=== PATIENT | female | born 1970 | race Caucasian/White ===

== ENCOUNTER 2016-09-10 16:24 | Emergency (ER) | payer OTHER ==
[2016-09-10 16:25] VITALS: BMI 31.3
[2016-09-10 16:38] VITALS: TEMP 98
[2016-09-10] MEDS ORDERED: Oxycodone/Acetaminophen 5/325 mg Tab PO STA (17:42)
[2016-09-10] MEDS ORDERED: Oxycodone/Acetaminophen 5/325 mg Tab ONE (17:48)
--- NOTE | 2016-09-10 17:59 | C.PDOC ---
History Of Present Illness A 46 year old female presents to the emergency room with complaints of left ankle pain after twisting the ankle while wearing heels 2 days ago. Patient reports that at the time she took off the heels, she was able to ambulate. The following day swelling worsened though improved some today. Pain persists. Patient denies any other trauma/pain, numbness, weakness, any sensory changes, or any other complaints. Time Seen by Provider: 09/10/16 17:32 Chief Complaint (Nursing): Lower Extremity Problem/Injury History Per: Patient History/Exam Limitations: no limitations Onset/Duration Of Symptoms: Days (2), Persistent Current Symptoms Are (Timing): Still Present Severity: Mild Recent travel outside of the [place]: No - Ankle/Foot Description Of Injury: Twisted Past Medical History Reviewed: Historical Data, Nursing Documentation, Vital Signs Vital Signs: Last Vital Signs Temp 98 F 09/10/16 16:31 Pulse 72 09/10/16 18:10 Resp 18 09/10/16 18:10 BP 140/75 09/10/16 18:10 Pulse Ox 97 09/10/16 19:28 - Medical History PMH: CAD, HTN Denies: Depression Surgical History: Coronary Stent - [facility] Procedures D & C NEC (06/16/04) FALLOP TUBE REPAIR NEC (06/16/04) FALLOPIAN TUBE INSUFFLAT (06/16/04) LAPAROSCOP APPENDECTOMY (03/31/97) LAPAROSCOP LYSIS-PERITONEAL ADHES (03/31/97) LOCAL DESTR OVA LES NEC (06/16/04) OTH LAPAROSCOP LOCAL EXCIS/DESTRUCT OVARY (03/31/97) OTH LYSIS-PERITONEAL ADHES (06/16/04) Family History: States: No Known Family Hx - Social History Hx Alcohol Use: Yes Hx Substance Use: No - Immunization History Hx Influenza Vaccination: No Hx Pneumococcal Vaccination: No Review Of Systems Except As Marked, All Systems Reviewed And Found Negative. Constitutional: Negative for: Fever, Chills Gastrointestinal: Negative for: Nausea, Vomiting, Diarrhea Musculoskeletal: Positive for: Other (Left ankle pain and swelling) Neurological: Negative for: Weakness, Numbness, Headache, Dizziness Physical Exam - Physical Exam Appears: Well, Non-toxic, No Acute Distress Skin: Normal Color, Warm, Dry Head: Atraumatic, Normacephalic Eye(s): bilateral: Normal Inspection, EOMI Nose: Normal, No Tenderness Oral Mucosa: Moist Neck: Normal ROM, No Midline Cervical Tenderness, No Paracervical Tenderness, Supple Chest: Symmetrical Respiratory: No Accessory Muscle Use Back: No CVA Tenderness, No Vertebral Tenderness Extremity: No Normal ROM (decreased rOm secondary to pain), Tenderness ( Tenderness to ankle, lateral aspect of foot, and medial aspect of knee. ), Pedal Edema, No Calf Tenderness, No Deformity, Swelling (Diffuse swelling to ankle) Pulses: Left Dorsalis Pedis: Normal, Right Dorsalis Pedis: Normal Neurological/Psych: Oriented x3, Normal Speech, Normal Cognition, Normal Motor, Normal Sensation, Normal Reflexes Gait: Steady ED Course And Treatment O2 Sat by Pulse Oximetry: 97 - Other Rad Right Ankle/Foot X-rays X-Ray: Interpreted by Me, Viewed By Me Interpretation: Right Ankle X-ray Impression: As read by me; no fractures or dislocations. Right Foot X-ray Impression: As read by me; no fractures or dislocations. Progress Note: Right Foot and Ankle X-rays were negative. Patient given Percocet. Patient placed in asher wrap with air cast. Patient give crutches. On reassessment, patient is resting comfortably, with improvement of right ankle pain. Patient remains afebrile, with no bony tenderness, extremity numbness or weakness, or any other pain. Patient is ambulatory in the emergency department with no signs of discomfort. Patient was advised to follow up with Ortho in 1-2 days. Disposition - Disposition Referrals: Jaciel Pino MD [Staff Provider] - Disposition: HOME/ ROUTINE Disposition Time: 17:57 Condition: STABLE Additional Instructions: Rest, ice and elevate the area. Follow up with primary medical doctor in 1-3 days without fail for further evaluation. Take medications as prescribed. Return to the emergency department at any time if symptoms persist or worsen. Prescriptions: Naproxen [Naprosyn] 1 tab PO BID PRN #20 tab PRN Reason: Pain Instructions: Ankle Sprain (ED) Forms: Work Excuse - Clinical Impression Clinical Impression: Ankle sprain - Scribe Statement The provider has reviewed the documentation as recorded by the Ridge Caputo Provider Scribe Attestation: All medical record entries made by the Georgeibsoha were at my direction and personally dictated by me. I have reviewed the chart and agree that the record accurately reflects my personal performance of the history, physical exam, medical decision making, and the department course for this patient. I have also personally directed, reviewed, and agree with the discharge instructions and disposition.
[2016-09-10 18:10] VITALS: BP 140/75; PULSE 72; RESP 18
--- NOTE | 2016-09-10 18:38 | RAD ---
PROCEDURE: Right Knee Radiographs. HISTORY: COMPARISON: None available FINDINGS: BONES: No acute displaced fracture. JOINTS: No dislocation. JOINT EFFUSION: No significant joint effusion. OTHER FINDINGS: None. IMPRESSION: No acute displaced fracture, dislocation, or significant joint effusion identified. If symptoms persist, or if there is continued clinical concern, x-ray follow-up in 7-10 days should be considered.
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
[2016-09-10 19:20] VITALS: O2SAT 97
== END 2016-09-10 18:15 | disposition home or self-care (01) ==
LOC: C.ER 16:24
DX: S93.402A Sprain of unspecified ligament of left ankle, initial encounter (principal); X50.1XXA Overexertion from prolonged static or awkward postures, initial encounter; Y93.89 Activity, other specified; Y92.9 Unspecified place or not applicable

== ENCOUNTER 2016-11-16 16:24 | Emergency (ER) | payer OTHER ==
[2016-11-16 16:24] VITALS: BMI 31.3
[2016-11-16 16:38] VITALS: RESP 18
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
--- NOTE | 2016-11-16 18:18 | CT ---
PROCEDURE: CT Cervical Spine without contrast HISTORY: <trauma> COMPARISON: None available. TECHNIQUE: Axial computed tomography images were obtained of the cervical spine without the use of intravenous contrast. Coronal and sagittal reformatted images were created and reviewed. Radiation dose: Total exam DLP = 534.41 mGy-cm. This CT exam was performed using one or more of the following dose reduction techniques: Automated exposure control, adjustment of the mA and/or kV according to patient size, and/or use of iterative reconstruction technique. FINDINGS: VERTEBRAE: No fracture. Normal alignment. No destructive bony lesion. DISCS/SPINAL CANAL/NEURAL FORAMINA: No significant central canal or neural foraminal stenosis. Discs heights are grossly preserved. PARASPINAL SOFT TISSUES: Unremarkable. OTHER FINDINGS: Reversal of the normal lordotic curvature. This may indicate muscular spasm. IMPRESSION: No evidence of fracture or dislocation. Possible muscular spasm.
[2016-11-16 19:11] VITALS: BP 150/72; PULSE 78; TEMP 98.3
[2016-11-18 21:19] VITALS: O2SAT 98
== END 2016-11-16 19:02 | disposition home or self-care (01) ==
LOC: C.ER 16:24
DX: S00.83XA Contusion of other part of head, initial encounter (principal); R42 Dizziness and giddiness; Y09 Assault by unspecified means; Y92.9 Unspecified place or not applicable